=== PATIENT | male | born 1975 | race Caucasian/White ===

== ENCOUNTER → 2020-09-02 | Outpatient (CLI) | payer BC | END | disposition home or self-care (01) | LOC: RESCLI 08:55 | PROVIDERS: ATTEND Internal Medicine | DX: Z76.89 Persons encountering health services in other specified circumstances (principal); E11.9 Type 2 diabetes mellitus without complications; E55.9 Vitamin D deficiency, unspecified; E78.5 Hyperlipidemia, unspecified; E66.9 Obesity, unspecified; Z79.899 Other long term (current) drug therapy; Z87.891 Personal history of nicotine dependence; Z98.890 Other specified postprocedural states ==

== ENCOUNTER → 2021-05-12 | Outpatient (CLI) | payer BC | END | disposition home or self-care (01) | LOC: RESCLI 05-11 06:41 | PROVIDERS: ATTEND Internal Medicine | DX: E11.9 Type 2 diabetes mellitus without complications (principal); E78.5 Hyperlipidemia, unspecified; E55.9 Vitamin D deficiency, unspecified; E66.9 Obesity, unspecified; Z79.899 Other long term (current) drug therapy ==

== ENCOUNTER → 2022-05-20 | Outpatient (CLI) | payer BC | END | disposition home or self-care (01) | LOC: RESCLI 13:22 | PROVIDERS: ATTEND Internal Medicine | DX: E11.9 Type 2 diabetes mellitus without complications (principal); E55.9 Vitamin D deficiency, unspecified; E78.5 Hyperlipidemia, unspecified; F10.90 Alcohol use, unspecified, uncomplicated; Z79.84 Long term (current) use of oral hypoglycemic drugs; Z87.891 Personal history of nicotine dependence; Z79.899 Other long term (current) drug therapy ==

== ENCOUNTER → 2023-08-18 | Outpatient (CLI) | payer OTHER | END | disposition home or self-care (01) | LOC: RESCLI 01:49 | PROVIDERS: ATTEND Internal Medicine | DX: E11.9 Type 2 diabetes mellitus without complications (principal); E55.9 Vitamin D deficiency, unspecified; E78.5 Hyperlipidemia, unspecified; Z79.899 Other long term (current) drug therapy; Z88.8 Allergy status to other drugs, medicaments and biological substances; Z98.890 Other specified postprocedural states ==